=== PATIENT | female | born 1945 | race Caucasian/White ===

== ENCOUNTER 2023-12-24 15:31 | Outpatient (CLI) | payer MEDICARE, BC | END 2023-12-24 15:32 | disposition home or self-care (01) | LOC: CSHCT 15:31 | PROVIDERS: ATTEND Orthopaedic Surgery | DX: M25.511 Pain in right shoulder (principal); M25.411 Effusion, right shoulder; M85.811 Other specified disorders of bone density and structure, right shoulder; M79.89 Other specified soft tissue disorders; L98.499 Non-pressure chronic ulcer of skin of other sites with unspecified severity ==